=== PATIENT | male | born 1940 | race Caucasian/White ===

== ENCOUNTER 2019-09-30 22:28 | Emergency (ER) | payer OTHER, MEDICAID ==
[~2019-09-30] VITALS: Ht 170.2 cm; Wt 78.0 kg
[~2019-09-30 22:28] MED LIST: FINA1TAB
[2019-09-30 22:37] VITALS: BP_SYST 141
[2019-10-01] MEDS ORDERED: CEPHALEXIN 500 MG CAPSULE PO ONE (02:15)
[2019-10-01] MEDS ORDERED: HYDROcodone/ACETAMIN 7.5-325 MG TAB PO ONE (02:15)
[2019-10-01 02:46] VITALS: BP_SYST 130
== END 2019-10-01 02:46 | disposition home or self-care (01) ==
LOC: SED 22:28
DX: N48.1 Balanitis (principal); N48.89 Other specified disorders of penis; E11.9 Type 2 diabetes mellitus without complications
CPT/HCPCS: 99283